=== PATIENT | male | born 1930 ===

== ENCOUNTER 2017-12-15 08:44 | Emergency (ER) | payer OTHER ==
[~2017-12-15] VITALS: Ht 172.7 cm; Wt 83.9 kg
[~2017-12-15 08:44] MED LIST: ATENOLOL25 MG PO; CRESTOR10 MG PO; NORVASC10 MG PO
[2017-12-15] MEDS ORDERED: ESCITALOPRAM OXA5 MG (09:06)
[2017-12-15] MEDS ORDERED: MEMANTINE HCL5 MG (09:06)
[2017-12-15] MEDS ORDERED: BISOPROLOL FUMAR5 MG (09:06)
[2017-12-15] MEDS ORDERED: ARICEPT5 MG (09:07)
[2017-12-15] MEDS ORDERED: PAROXETINE HC12.5 MG (09:07)
[2017-12-15] MEDS ORDERED: TRANDOLAPRIL2 MG (09:08)
== END 2017-12-15 16:13 | disposition home or self-care (01) ==
LOC: ER 08:44 → CPU-OBS 09:22 → ER 09:22
DX: R07.89 Other chest pain (principal); R53.81 Other malaise; R06.02 Shortness of breath; R53.1 Weakness; F41.8 Other specified anxiety disorders

== ENCOUNTER → 2019-07-23 | Emergency (ER) | payer OTHER ==
[~2019-07-23] VITALS: Ht 170.2 cm; Wt 81.6 kg
[~2019-07-23] MED LIST changes: +ARICEPT5 MG; +BISOPROLOL FUMAR5 MG; +ESCITALOPRAM OXA5 MG; +MEMANTINE HCL5 MG; +PAROXETINE HC12.5 MG; +TRANDOLAPRIL2 MG
== END | disposition home or self-care (01) ==
LOC: ER 16:01
DX: R00.1 Bradycardia, unspecified (principal)

== ENCOUNTER 2020-02-03 00:40 | Inpatient (IN) | payer OTHER ==
[~2020-02-03] VITALS: Ht 167.6 cm; Wt 72.6 kg
[2020-02-17] MEDS ORDERED: ARICEPT5 MG PO (12:49)
[2020-02-17] MEDS ORDERED: LANOXIN125 MCG PO (12:50)
[2020-02-17] MEDS ORDERED: XARELTO20 MG PO (12:50)
[2020-02-17] MEDS ORDERED: LIPITOR40 MG PO (12:50)
[2020-02-17] MEDS ORDERED: LISINOPRIL20 MG PO (12:51)
[2020-02-17] MEDS ORDERED: LOPRESSOR25 MG PO (12:51)
[2020-02-17] MEDS ORDERED: ADALAT CC30 MG PO (12:52)
[2020-02-17] MEDS ORDERED: NAMENDA5 MG PO (12:53)
== END 2020-02-17 19:12 | disposition home or self-care (01) | DRG 177 ==
LOC: ER 00:40 → MEDI 15:52 → MEDJ 15:52 → MEDI 02-07 10:43
PROVIDERS: ADMIT Internal Medicine; ATTEND Internal Medicine
PROC: BB24ZZZ Computerized Tomography (CT Scan) of Bilateral Lungs (ICD-10-PCS; principal; 2020-02-03)
PROC: 8E0ZXY6 Isolation (ICD-10-PCS; 2020-02-03)
PROC: 3E0F7GC Introduction of Other Therapeutic Substance into Respiratory Tract, Via Natural or Artificial Opening (ICD-10-PCS; 2020-02-03)
PROC: 4A033R1 Measurement of Arterial Saturation, Peripheral, Percutaneous Approach (ICD-10-PCS; 2020-02-03)
PROC: 4A12X4Z Monitoring of Cardiac Electrical Activity, External Approach (ICD-10-PCS; 2020-02-03)
PROC: B24BZZZ Ultrasonography of Heart with Aorta (ICD-10-PCS; 2020-02-04)
PROC: BT4JZZZ Ultrasonography of Kidneys and Bladder (ICD-10-PCS; 2020-02-10)
PROC: BW21Y0Z Computerized Tomography (CT Scan) of Abdomen and Pelvis using Other Contrast, Unenhanced and Enhanced (ICD-10-PCS; 2020-02-16)
DX: J69.0 Pneumonitis due to inhalation of food and vomit (principal); I50.23 Acute on chronic systolic (congestive) heart failure; I21.4 Non-ST elevation (NSTEMI) myocardial infarction; J90 Pleural effusion, not elsewhere classified; I48.20 Chronic atrial fibrillation, unspecified; R06.03 Acute respiratory distress; G30.0 Alzheimer's disease with early onset; F02.80 Dementia in other diseases classified elsewhere, unspecified severity, without behavioral disturbance, psychotic disturbance, mood disturbance, and anxiety; F41.1 Generalized anxiety disorder; I25.10 Atherosclerotic heart disease of native coronary artery without angina pectoris; I11.0 Hypertensive heart disease with heart failure; E11.9 Type 2 diabetes mellitus without complications; R53.81 Other malaise; Z85.038 Personal history of other malignant neoplasm of large intestine; Z08 Encounter for follow-up examination after completed treatment for malignant neoplasm; Z79.4 Long term (current) use of insulin; Z85.46 Personal history of malignant neoplasm of prostate; Z79.01 Long term (current) use of anticoagulants